=== PATIENT | female | born 1955 | race African-American/Black ===

== ENCOUNTER 2018-07-02 16:08 | Emergency (ER) | payer BC ==
[~2018-07-02] VITALS: Ht 160 cm; Wt 49.0 kg
[2018-07-02 16:12] VITALS: BP 104/78
== END 2018-07-02 20:21 | disposition left against medical advice (07) ==
LOC: ER 16:08
DX: Z53.21 Procedure and treatment not carried out due to patient leaving prior to being seen by health care provider (principal)